=== PATIENT | male | born 1935 | race Caucasian/White ===

== ENCOUNTER 2019-08-12 09:47 | Outpatient (CLI) | payer MEDICARE, SELFPAY ==
--- NOTE | 2019-08-12 10:15 | ECHO_ITS ---
Patient Info Name: Christopher Bergeron Age: 84 years : 1935 Gender: Male Ht: 69 in Wt: 170 lbs BSA: 1.95 m2 HR: 44 bpm BP: 161 / 80 mmHg Technical Quality: Good Exam Date: 08/12/2019 10:21 AM Exam Location: [facility] Patient Status: Outpatient Admit Date: 08/12/2019 Staff Ordering Physician: Sophia Turcios MD Tapeman: Yolis Hernandez RDCS Attending Provider: Sophia Turcios MD Referring Physician: Tam TELLES; Exam Type: CA echo doppler color flow Study Info Indications - new murmur /fatique Complete two-dimensional, color flow and Doppler transthoracic echocardiogram is performed. Summary 1. Left ventricular chamber dimension is mildly enlarged. 2. Left ventricular systolic function is normal, estimated at 55-60%. 3. The left ventricular diastolic function is grade I diastolic dysfunction. 4. E/e' 10 is mildly elevated. 5. Global longitudinal strain is normal at -20.0%. 6. Left atrial chamber dimension is mildly enlarged. 7. Right atrial chamber dimension is mildly enlarged. 8. There is mild tricuspid valve regurgitation. 9. No pulmonary hypertension, estimated pulmonary arterial systolic pressure is 27 mmHg. 10. There is trace pulmonic regurgitation. 11. Small atheroma in anterior aortic root. Left Ventricle E/e' 10 is mildly elevated. Global longitudinal strain is normal at -20.0%. Left ventricular chamber dimension is mildly enlarged. Left ventricular systolic function is normal, estimated at 55-60%. The left ventricular diastolic function is grade I diastolic dysfunction. Right Ventricle Right ventricular chamber dimension is normal. Right ventricular systolic function is normal. Left Atria Left atrial chamber dimension is mildly enlarged. Right Atria Right atrial chamber dimension is mildly enlarged. Aortic Valve The aortic valve is trileaflet. There is no aortic valve stenosis. There is no aortic valve regurgitation. Pulmonic Valve There is trace pulmonic regurgitation. Mitral Valve There is no mitral valve stenosis. Tricuspid Valve There is mild tricuspid valve regurgitation. No pulmonary hypertension, estimated pulmonary arterial systolic pressure is 27 mmHg. Pericardium/Pleural There is no pericardial effusion. Inferior Vena Cava Normal inferior vena cava with >50% collapse upon inspiration consistent with normal right atrial pressure, 5 mmHg. Aorta Small atheroma in anterior aortic root. The aortic root size at the sinus of Valsalva is normal. Left Ventricular Outflow Tract Name Value Normal LVOT 2D LVOT Diameter 2.0 cm LVOT Doppler LVOT Peak Gradient 5 mmHg LVOT Mean Gradient 2 mmHg LVOT VTI 25 cm LVOT VTI/AV VTI Ratio 0.7 LVOT Stroke Volume 79 ml LVOT CO 13.4 l/min LVOT CI 6.9 l/min/m2 Pulmonic Valve Name
== END 2019-08-12 09:48 | disposition home or self-care (01) ==
PROVIDERS: PCP Family Medicine; Visit Provider Family Medicine
DX: R01.1 Cardiac murmur, unspecified (principal); R53.83 Other fatigue
CPT/HCPCS: 93306

== ENCOUNTER 2019-08-26 10:41 | Outpatient (CLI) | payer MEDICARE, SELFPAY ==
--- NOTE | ~2019-08-26 | MM_ITS ---
EXAMINATION: MM diagnostic mammo unilat LT HISTORY: Asymmetric enlargement of the left breast TECHNIQUE: Full field digital craniocaudal and mediolateral oblique views of the left breast were obt ained. Mediolateral oblique view of the right breast is obtained for comparison purposes. CAD analysi s was submitted and interpreted. COMPARISON: No prior mammogram is available for comparison at this institution. BREAST PARENCHYMAL COMPOSITION: The breasts are almost entirely fatty. FINDINGS: There is no suspicious mass, calcification, or architectural distortion in the left breast to suggest malignancy. IMPRESSION: 1. No specific mammographic correlate is identified for the reported asymmetric enlargement of the le ft breast. Further evaluation at this time should be based on clinical assessment. Continued follow-u p physical examination is recommended. BI-RADS Category 1: Negative Reviewed, dictated and finalized at location A. IMPRESSION: 1. No specific mammographic correlate is identified for the reported asymmetric enlargement of the left breast. Further evaluation at this time should be base d on clinical assessment. Continued follow-up physical examination is recommend ed. BI-RADS Category 1: Negative
== END 2019-08-26 10:42 | disposition home or self-care (01) ==
LOC: ANHIMG 10:50
PROVIDERS: PCP Family Medicine; Visit Provider Family Medicine
DX: N62 Hypertrophy of breast (principal); R53.83 Other fatigue; R01.1 Cardiac murmur, unspecified
CPT/HCPCS: 77065